=== PATIENT | male | born 1955 | race Caucasian/White ===

== ENCOUNTER 2016-04-25 08:50 | Emergency (ER) | payer OTHER, MEDICARE ==
[~2016-04-25 08:50] MED LIST: ATORVASTATIN CA40 M1 PO; CARVEDILOL12.5 M1 PO; DEXAMETHASONE4 M1 PO; FUROSEMIDE20 M1 PO; LISINOPRIL20 M1 PO; LOVENOX80 MG/0.1 SC; OXYCODONE HCL10 M2 PO; PRADAXA150 M1 PO; TAMSULOSIN HCL0.4 M1 PO
--- NOTE | 2016-04-25 10:29 | ED CRITICAL CARE ---
History of Present Illness General Chief Complaint: Cardiopulmonary Resuscitation Stated Complaint: BIBA CPR Source: family, old records, EMS Exam Limitations: clinical condition Vital Signs & Intake/Output Vital Signs & Intake/Output Vital Signs Date Time Temp Pulse Resp B/P Pulse O2 O2 Flow FiO2 Ox Delivery Rate 04/25 0910 0 0 Allergies Coded Allergies: No Known Allergies (11/22/15) Reconcile Medications Atorvastatin Calcium 40 MG TABLET 1 TAB PO DAILY CHOLESTEROL (Reported) Carvedilol 12.5 MG TABLET 1 TAB PO BID HEART (Reported) Dabigatran Etexilate Mesylate (Pradaxa 150 MG) 150 MG CAPSULE 150 MG PO BID blood thinner Dexamethasone 4 MG TABLET 4 TAB PO DAILY CANCER (Reported) Furosemide 20 MG TABLET 1 TAB PO DAILY LEG SWELLING (Reported) Lisinopril 20 MG TABLET 1 TAB PO DAILY BP (Reported) Oxycodone HCl 10 MG TABLET 1 TAB PO TIDPRN PAIN (Reported) Tamsulosin HCl 0.4 MG CAP.ER.24H 1 CAP PO DAILY BPH (Reported) Core Measure Meds Pre-Hospital pradaxa Triage Note: SEE CODE FLOW SHEET Triage Nurses Notes Reviewed? yes Onset: Just prior to arrival Duration: minute(s):, constant, continues in ED Timing: recent history Injury Environment: home Severity: severe Pain Location: none HPI: Patient has history of metastatic laryngeal cancer DVT pulmonary embolism on anticoagulation having bleeding about his tracheostomy site 1 day prior to admission. The bleeding increased in severity EMS called. The patient collapsed pulseless and asystolic. ACLS protocol begun. The patient was DNR DNI the paperwork was not available for the EMS crew. Past History Travel History Traveled to [place] past 21 day No Medical History Any Pertinent Medical History? see below for history Neurological: NONE EENT: NONE Cardiovascular: CONGESTIVE CARDIAC MYOPAT ~33 EF Respiratory: bronchitis, TRACH Gastrointestinal: PEG TUBE (REMOVED) Hepatic: NONE Renal: NONE Musculoskeletal: L ANKLE FX/SX/HDWE Psychiatric: NONE Endocrine: NONE Blood Disorders: NONE Cancer(s): head/neck cancer LICENSED FINAL EXPENSE AGENTS/Reproductive: NONE History of MRSA: No History of VRE: No History of CDIFF: No Isolation History: Standard Surgical History Surgical History: PRIOR peg TUBE TRACHEOSTOMY DEFIBRILLATORY Psychosocial History Who do you live with Spouse Services at Home None What is your primary language Swedish Tobacco Use: Quit >30 days ago Family History Hx Contributory? No Review of Systems Review of Systems Constitutional: Reports: see HPI, weakness. Respiratory: Reports: see HPI, hemoptysis. Comments unable due to clinical status Physical Exam Physical Exam General Appearance: severe distress Head: atraumatic, active bleeding Eyes: Bilateral: other (fixed and dilated). Ears, Nose, Throat, Mouth: epistaxis Neck: bleeding from tracheostomy site Respiratory: mechanical breath sounds Cardiovascular: no heart sounds Peripheral Pulses: 0 carotid (R), 0 carotid (L), 0 femoral (R), 0 femoral (L) Gastrointestinal: soft, non-tender Back: normal inspection Extremities: no ligament instability Neurologic/Psych: motor/sensory deficits Skin: pallor Core Measures ACS in differential dx? No CVA/TIA Diagnosis: No Severe Sepsis Present: No Septic Shock Present: No Progress Differential Diagnoses I considered the following diagnoses in my evaluation of the patient: Hemoptysis aspiration respiratory failure Plan of Care: Discontinue heroic efforts Initial ED EKG: asystole Comments: packet completed Family notified PMD notified Departure Departure Time of Disposition: 850 Disposition: Condition: Stable Clinical Impression Primary Impression: Respiratory failure Qualifiers: Chronicity: acute Respiratory failure complication: unspecified whether with hypoxia or hypercapnia Qualified Code: J96.00 - Acute respiratory failure, unspecified whether with hypoxia or hypercapnia Secondary Impressions: Aspiration into respiratory tract Qualifiers: Encounter type: initial encounter Qualified Code: T17.908A - Unspecified foreign body in respiratory tract, part unspecified causing other injury, initial encounter Hemoptysis Referrals: LISA MAX MD (PCP/Family) Departure Forms: General Discharge Information Critical Care Note Critical Care Note Critical Care Time: 30-74 min (35)
== END 2016-04-25 08:51 | disposition expired ==
LOC: ERH 08:50
DX: J96.90 Respiratory failure, unspecified, unspecified whether with hypoxia or hypercapnia (principal); T17.908A Unspecified foreign body in respiratory tract, part unspecified causing other injury, initial encounter; Z87.891 Personal history of nicotine dependence
CPT/HCPCS: 1387; 94799